=== PATIENT | male | born 1980 | race Caucasian/White ===

== ENCOUNTER 2024-12-28 19:38 | Emergency (ER) | payer OTHER ==
[2024-12-28] MEDS ORDERED: Methocarbamol 500 MG TAB ONE (19:57)
[2024-12-28] MEDS ORDERED: Ibuprofen 800 MG TAB ONE (19:58)
== END 2024-12-28 20:54 | disposition home or self-care (01) ==
LOC: MADERS 19:38
DX: M25.511 Pain in right shoulder (principal); F17.210 Nicotine dependence, cigarettes, uncomplicated
CPT/HCPCS: 99283